=== PATIENT | female | born 1965 | race Caucasian/White ===

== ENCOUNTER → 2020-07-19 09:23 | Outpatient (CLI) | payer BC, SELFPAY ==
--- NOTE | ~2020-07-19 | XR_ITS ---
EXAMINATION: XR chest 2V 07/19/2020 09:47 INDICATION: Shortness of breath PROCEDURE: 2 view chest COMPARISON: No prior studies for comparison. FINDINGS: The lungs are clear. The cardiomediastinal silhouette is within normal limits. There are no pleural effusions. There is no pneumothorax suspected. IMPRESSION: 1: NO ACUTE CARDIOPULMONARY DISEASE. Reviewed, dictated and finalized at location A. [employer]
== END ==
PROVIDERS: PCP Internal Medicine; Visit Provider Internal Medicine
DX: R06.02 Shortness of breath (principal)
CPT/HCPCS: 71046